=== PATIENT | male | born 1990 | race African-American/Black ===

== ENCOUNTER 2019-07-28 11:16 | Emergency (ER) | payer OTHER ==
[~2019-07-28] VITALS: Ht 160 cm; Wt 65.8 kg
[2019-07-28 11:16] VITALS: TEMP 97.3
[2019-07-28 12:18] LABS: POTASSIUM 4.5 mmol/L (3.6-5.2)
[2019-07-28 12:27] LABS: PLATELET COUNT 316 K/uL (142-355)
[2019-07-28 14:26] VITALS: BP 114/87
== END 2019-07-28 14:30 | disposition home or self-care (01) ==
LOC: ED 11:27
PROVIDERS: Family Medicine
DX: R56.9 Unspecified convulsions (principal)
CPT/HCPCS: 80053; 81000; 85027; 99283